=== PATIENT | female | born 1970 | race Two or more races ===

== ENCOUNTER 2024-06-23 08:43 | Outpatient (CLI) | payer OTHER | END 2024-06-23 08:48 | disposition home or self-care (01) | LOC: SONOGRAMA 08:43 | PROVIDERS: ATTEND Pathology Anatomic Pathology | DX: D34 Benign neoplasm of thyroid gland (principal); E07.89 Other specified disorders of thyroid; E04.2 Nontoxic multinodular goiter ==

== ENCOUNTER 2024-08-03 09:00 | Inpatient (IN) | payer OTHER ==
[~2024-08-03] VITALS: Ht 154.9 cm; Wt 83.9 kg
[2024-08-03] MEDS ORDERED: AVAPRO75 MG PO (10:12)
[2024-08-03] MEDS ORDERED: ROSUVASTATIN CA10 MG PO (10:12)
[2024-08-03] MEDS ORDERED: METFORMIN HCL500 M3 PO (10:12)
[2024-08-03 10:27] LABS: BASO % 0.3 % (0.1-1.2); EOS % 1.5 % (0.7-7.0); HEMATOCRIT 43.8 % (34.1-44.9); HEMOGLOBIN 13.9 g/dL (11.2-15.7); LYMPH # 2.07 (1.18-3.74); LYMPH % 31.3 % (19.3-53.1); MEAN CORPUSCULAR HEMOGLOBIN 26.9 pg (25.6-32.2); MONO # 0.48 (0.24-0.82); MONO % 7.3 % (4.7-12.5); NEUT # 3.93 (1.56-6.13); NEUT % 59.3 % (34.0-71.1); PLATELET COUNT 227 K/uL (163-369); RED BLOOD COUNT 5.16 M/uL (3.93-5.22); RED CELL DISTRIBUTION WIDTH 12.4 % (11.6-14.4)
[2024-08-03 10:47] VITALS: BP 125/75; BP 125/76
[2024-08-03 10:53] LABS: INR 0.99; PROTHROMBIN TIME 10.8 SECONDS (9.0-11.5)
[2024-08-03 11:14] LABS: ALBUMIN 4.1 gm/dL (3.4-5.0); BILIRUBIN TOTAL 0.85 mg/dL (0.3-1.2); CALCIUM 9.4 mg/dL (8.5-10.1); CREATININE SERUM 0.57 mg/dL (0.55-1.02); GFR 110.53; GLOBULINA 2.8 G/DL (2.4-3.5); POTASSIUM 4.46 mEq/L (3.5-5.1); TOTAL PROTEIN 6.9 gm/dL (6.4-8.2)
[2024-08-03 11:15] LABS: URINE APPEARANCE Clear; URINE BILIRRUBIN Negative (NEGATIVE); URINE BLOOD Small; URINE COLOR Yellow; URINE GLUCOSE Negative (NEGATIVE); URINE KETONE Negative (NEGATIVE); URINE LEUKOCYTE Negative; URINE NITRATE Negative; URINE PROTEIN Negative (NEGATIVE); URINE UROBILINOGEN 0.2 E.U./dl
[2024-08-03 11:18] LABS: URINE BACTERIA 7.3 uL (0.0-1933); URINE EPITHELIAL CELLS 1.7 uL (0.0-38.8); URINE RBC 35.9 uL (0.0-20.8)
[2024-08-03 11:35] LABS: URINE WBC 1.7 uL (0.0-23.2)
[2024-08-11] MEDS ORDERED: DEXAMETHASONE SODIUM PHOSPHATE 4 MG/ML VIAL ONE (06:59)
[2024-08-11] MEDS ORDERED: CEFAZOLIN SODIUM 1,000 MG VIAL ONE (07:25)
[2024-08-11] MEDS ORDERED: DEXAMETHASONE SODIUM PHOSPHATE 4 MG/ML VIAL IV ONE (08:30)
[2024-08-11] MEDS ORDERED: CEFAZOLIN SODIUM 1,000 MG VIAL IV ONE (08:30)
[2024-08-11] MEDS ORDERED: ENALAPRILAT DIHYDRATE 1.25 MG/ML VIAL IV PRN (09:15)
[2024-08-11] MEDS ORDERED: DEXTROSE 50 % IN WATER 0.5 G/ML VIAL IV PRN (09:15)
[2024-08-11] MEDS ORDERED: ONDANSETRON HCL 2 MG/ML VIAL IV PRN (09:15)
[2024-08-11] MEDS ORDERED: INSULIN LISPRO 1,000 UNIT/10 ML UNITS SUBCUTANEO PRN (09:15)
[2024-08-11 12:00] VITALS: BP 145/80; O2SAT 96
[2024-08-11] MEDS ORDERED: MAG HYDROX/ALUMINUM HYD/SIMETH 30 ML BLIST.PACK PO ONE (15:39)
[2024-08-11 16:47] VITALS: BP 126/76; O2SAT 97
[2024-08-11] MEDS ORDERED: CYCLOBENZAPRINE HCL 5 MG TABLET PO SCH ×2 (17:00)
[2024-08-11] MEDS ORDERED: LIDOCAINE HCL 60 ML,MAG HYDROX/ALUMINUM HYD/SIMETH 60 ML,DIPHENHYDRAMINE HCL 150 MG MM SCH (17:00)
[2024-08-11] MEDS ORDERED: TRAMADOL HCL 50 MG TABLET PO SCH (17:00)
[2024-08-11] MEDS ORDERED: ACETAMINOPHEN 500 MG GEL..CAP PO SCH (17:00)
[2024-08-11] MEDS ORDERED: GABAPENTIN 100 MG CAPSULE PO SCH (17:00)
[2024-08-11] MEDS ORDERED: Calcium Carbonate 1 TAB TABLET PO SCH (21:00)
[2024-08-11] MEDS ORDERED: PANTOPRAZOLE SODIUM 40 MG/VIAL VIAL IV PUSH SCH (21:00)
[2024-08-12 00:33] VITALS: BP 106/64; O2SAT 95
[2024-08-12] MEDS ORDERED: IRBESARTAN 75 MG TABLET PO SCH (09:00)
[2024-08-12] MEDS ORDERED: ROSUVASTATIN CALCIUM 20 MG TABLET PO SCH (09:00)
[2024-08-12] MEDS ORDERED: LEVOTHYROXINE SODIUM 137 MCG TABLET PO STA (09:48)
[2024-08-13] MEDS ORDERED: LEVOTHYROXINE SODIUM 125 MCG TABLET PO SCH (09:00)
== END 2024-08-12 13:41 | disposition home or self-care (01) | DRG 627 ==
LOC: SURG 08-08 09:00 → O/R 08-11 05:14 → SURH 08-11 10:51
PROVIDERS: ADMIT Surgery; ATTEND Surgery
PROC: 0GTH0ZZ Resection of Right Thyroid Gland Lobe, Open Approach (ICD-10-PCS; principal; 2024-08-11 08:30)
DX: C73 Malignant neoplasm of thyroid gland (principal)